=== PATIENT | female | born 1975 | race Caucasian/White ===

== ENCOUNTER → 2017-01-23 | Outpatient (CLI) | payer BC | END | disposition home or self-care (01) | LOC: CFH 08:50 | PROVIDERS: ATTEND Specialist | DX: Z12.31 Encounter for screening mammogram for malignant neoplasm of breast (principal) | CPT/HCPCS: G0202 ==

== ENCOUNTER 2018-12-01 13:18 | Outpatient (CLI) | payer OTHER | END 2018-12-01 23:59 | disposition home or self-care (01) | LOC: CFH 13:18 | PROVIDERS: ATTEND Internal Medicine | DX: Z12.31 Encounter for screening mammogram for malignant neoplasm of breast (principal) | CPT/HCPCS: 76641; 77063; 77067 ==